=== PATIENT | female | born 1955 ===

== ENCOUNTER 2016-09-13 01:05 | Emergency (ER) | payer BC, MEDICARE ==
[2016-09-13 01:25] VITALS: O2SAT 98
[2016-09-13] MEDS ORDERED: Sodium Chloride 0.9% 500 ML IV ONE (01:36)
[2016-09-13] MEDS ORDERED: Sodium Chloride 0.9% 1,000 ML ONE (01:42)
[2016-09-13 01:54] LABS: BASO % 0.4 % (0.0-2.0); EOS % 0.1 % (0.0-4.0); LYMPH # 0.7 K/uL (1.0-4.3); LYMPH % 6.3 % (20.0-40.0); MEAN CELL VOLUME 78.4 fL (81.0-99.0); MEAN CORPUSCULAR HEMOGLOBIN 24.6 pg (27.0-31.0); MEAN CORPUSCULAR HGB CONC 31.3 g/dL (33.0-37.0); MEAN PLATELET VOLUME 9.5 fL (7.2-11.7); MONO # 0.1 K/uL (0.0-0.8); MONO % 0.8 % (0.0-10.0); PLATELET COUNT 227 K/uL (130-400); WHITE BLOOD COUNT 11.9 K/uL (4.8-10.8)
[2016-09-13 02:18] LABS: CHLORIDE 99 mmol/L (98-107); POTASSIUM 4.1 mmol/L (3.6-5.2); SODIUM 136 mmol/L (132-148)
[2016-09-13 02:20] LABS: GFR AFRICAN-AMERICAN > 60
[2016-09-13 02:21] LABS: ALB/GLOB RATIO 1.1 (1.0-2.1); ALKALINE PHOSPHATASE 97 U/L (38-126); ALT/SGPT 17 U/L (9-52); AST/SGOT 21 U/L (14-36); BILIRUBIN,TOTAL 0.6 mg/dL (0.2-1.3); BLOOD UREA NITROGEN 22 mg/dL (7-17); CARBON DIOXIDE 23 mmol/L (22-30); GLUCOSE,RANDOM 327 mg/dL (65-105); TOTAL PROTEIN 8.2 g/dL (6.3-8.3)
[2016-09-13 02:22] LABS: CALCIUM 9.6 mg/dl (8.6-10.4)
[2016-09-13 03:47] LABS: NEUTROPHIL 92 % (50-75); TOTAL CELLS COUNTED 100
--- NOTE | 2016-09-13 03:49 | C.PDOC ---
History Of Present Illness Patient is a 61 year old female who presents to the ER after having an elevated blood sugar level last night. Patient states it started after she was started on a medrol pack yesterday by her steward/stewardess third class for asthma exacerbation. Patients accucheck at home was 140, which prompted the visit. Patient had a dose of metformin at 07:00 and another 250mg mg tonight [employer]. Denies dizziness, weakness, vomiting or SOB. Time Seen by Provider: 09/13/16 01:29 Chief Complaint (Nursing): High Blood Sugar History Per: Patient History/Exam Limitations: no limitations Onset/Duration Of Symptoms: Hrs Current Symptoms Are (Timing): Still Present Current Diabetic Medications: Other (Metformin) Causative (Exacerbating) Factor(s): Other (Change in medication) Associated Infectious Symptoms: denies: Vomiting, Other (Dizziness, Weakness, SOB) Treatment Prior To Provider Evaluation: Accucheck (140), Other (Metformin 250mg) Recent travel outside of the [place]: No Past Medical History Reviewed: Historical Data, Nursing Documentation, Vital Signs Vital Signs: Last Vital Signs Temp 98.1 F 09/13/16 04:15 Pulse 103 H 09/13/16 04:15 Resp 14 09/13/16 04:15 BP 167/80 H 09/13/16 04:15 Pulse Ox 98 09/13/16 04:15 - Medical History PMH: Arthritis (osteo), Asthma, Diabetes, Diverticulitis, Fibromyalgia, HTN, Hyperthyroidism (with goiter), Rheumatoid Arthritis Surgical History: No Surg Hx - [facility] Procedures D & C [facility] (09/12/01) Family History: States: Unknown Family Hx - Social History Hx Tobacco Use: No Hx Alcohol Use: No Hx Substance Use: No - Immunization History Hx Tetanus Toxoid Vaccination: No Hx Influenza Vaccination: No Hx Pneumococcal Vaccination: No Review Of Systems Respiratory: Negative for: Shortness of Breath Gastrointestinal: Negative for: Vomiting Neurological: Negative for: Weakness, Dizziness Physical Exam - Physical Exam Appears: Well, Non-toxic Skin: Normal Color, Warm, Dry Head: Atraumatic, Normacephalic Eye(s): bilateral: Normal Inspection, PERRL Oral Mucosa: Moist Chest: Symmetrical, No Tenderness Cardiovascular: Rhythm Regular, No Murmur, Other (mild tachycardia) Respiratory: Normal Breath Sounds, No Rales, No Rhonchi, No Wheezing Gastrointestinal/Abdominal: Soft, No Tenderness Neurological/Psych: Oriented x3, Normal Speech Gait: Steady ED Course And Treatment - Laboratory Results Result Diagrams: 09/13/16 01:36 09/13/16 01:36 ECG Rhythm: Sinus Tachycardia (at 107) ECG Interpretation: No Acute Changes O2 Sat by Pulse Oximetry: 98 (Room air) Pulse Ox Interpretation: Normal Progress Note: IV fluids administered. Pt remains stable, mid tachycardia at 107, BS 327 mg/ dl. Pt will follow up with PMD for DM meds management. Return instructions given and understood by pt Reevaluation Time: 04:41 Reassessment Condition: Improved Disposition Counseled Patient/Family Regarding: Diagnosis, Need For Followup, Rx Given - Disposition Disposition: HOME/ ROUTINE Disposition Time: 03:50 Condition: STABLE Additional Instructions: Please follow up with PMD for any adjustment in metformin Continue current meds Keep yourself hydrated Return to ER if worse Instructions: Diabetic Hyperglycemia (ED) - Clinical Impression Clinical Impression: Steroid-induced hyperglycemia - Scribe Statement The provider has reviewed the documentation as recorded by the Scribmadison Hagen All medical record entries made by the Thaoibmadison were at my direction and personally dictated by me. I have reviewed the chart and agree that the record accurately reflects my personal performance of the history, physical exam, medical decision making, and the department course for this patient. I have also personally directed, reviewed, and agree with the discharge instructions and disposition.
[2016-09-13 04:17] VITALS: BP 167/80; PULSE 103; RESP 14; TEMP 98.1
== END 2016-09-13 04:30 | disposition home or self-care (01) ==
LOC: C.ER 01:05
DX: E09.65 Drug or chemical induced diabetes mellitus with hyperglycemia (principal); T38.0X5A Adverse effect of glucocorticoids and synthetic analogues, initial encounter
CPT/HCPCS: 80053; 82009; 82948; 85025; 96360; 99285; J7040